=== PATIENT | female | born 1955 | race Caucasian/White ===

== ENCOUNTER 2017-07-07 15:59 | Inpatient (IN) | payer OTHER ==
[~2017-07-07] VITALS: Ht 162.6 cm; Wt 68.9 kg
[~2017-07-07 15:59] MED LIST: ASCO500 PO; Augmentin 875-1 EACH PO; CEPH500 PO; CHLO5; Enulose10 GM/15 M PO; FURO20 PO; FURO40 PO; HYDCHL25 PO; IBUP800 PO; K-Dur20 MEQ PO; LACT10SY PO; PANT40 PO; POTA8 PO; POTCHL10ER PO; SERT100 PO; SPIR50 PO; TRAM50 PO; VITAMIN D PO; WATER PILL; ZOLOFT; [UNRECOGNIZED DRUG - CODE] PO
[2017-07-07 16:26] LABS: BASOPHILS ABSOLUTE AUTO 0.02 K/mm3 (0.00-0.23); BASOPHILS PERCENT AUTO 0 % (0-2); EOSINOPHILS ABSOLUTE AUTO 0.18 K/mm3 (0.00-0.68); EOSINOPHILS PERCENT AUTO 2 % (0-6); Hematocrit 36.3 % (33.0-51.0); Hemoglobin 12.2 g/dL (11.5-16.0); IMMATURE GRAN ABSOLUTE AUTO 0.02 K/mm3 (0.00-0.10); IMMATURE GRAN PERCENT AUTO 0 % (0-1); LYMPHOCYTES ABSOLUTE AUTO 1.47 K/mm3 (0.84-5.20); LYMPHOCYTES PERCENT AUTO 20 % (21-46); MONOCYTES ABSOLUTE AUTO 0.49 K/mm3 (0.16-1.47); MONOCYTES PERCENT AUTO 7 % (4-13); Mean Corpuscular HGB 30.9 pg (26.0-34.0); Mean Corpuscular HGB Conc 33.6 g/dL (31.5-36.5); Mean Corpuscular Volume 92 fL (80-100); Mean Platelet Volume 9.8 fL (9.1-12.4); NEUTROPHILS ABSOLUTE AUTO 5.24 K/mm3 (1.96-9.15); NEUTROPHILS PERCENT AUTO 71 % (41-73); Platelet Count 237 K/mm3 (150-400); RDW Coefficient Variation 14.5 % (11.7-14.2); RDW Standard Deviation 48.8 fL (35.1-46.3); Red Blood Cell Count 3.95 M/mm3 (3.80-5.20); White Blood Cell Count 7.42 K/mm3 (4.00-11.30)
[2017-07-07 16:41] LABS: Alanine Aminotransfer (ALT/SGP 35 U/L (12-78); Albumin, Blood 2.3 g/dL (3.4-5.0); Albumin/Globulin Ratio 0.5 (0.8-1.8); Alk Phos 172 U/L (50-136); Anion Gap 8 mmol/L (6-16); Aspartate Aminotrans (AST/SGOT 51 U/L (12-37); Bilirubin, Total 1.5 mg/dL (0.1-1.0); Blood Urea Nitrogen 10 mg/dL (8-24); Bun/Creatinine Ratio 13.8 (12.0-20.0); CO2, Blood 25 mmol/L (21-32); Chloride, Blood 100 mmol/L (98-108); Creatinine, Blood 0.72 mg/dL (0.40-1.00); Globulin, Blood 4.5 g/dL (2.2-4.0); Glomerular Filtration Rate >60 (60-); Glucose, Blood 92 mg/dL (70-99); Potassium, Blood 4.1 mmol/L (3.5-5.5); Sodium, Blood 133 mmol/L (136-145); Total Protein, Blood 6.8 g/dL (6.4-8.2)
[2017-07-07 20:32] LABS: CHOL/HDL RATIO 5.2; Cholesterol 130 mg/dL (50-200); HDL Cholesterol 25 mg/dL (>39); LDL/HDL RATIO 3.6; Low Density Lipoprotein Chol 90 mg/dL (0-110); Triglycerides 77 mg/dL (30-160); Very Low Density Lipoprot Chol 15 mg/dL (6-32)
[2017-07-07] MEDS ORDERED: CHLO5 PO (21:22)
[2017-07-07] MEDS ORDERED: ACET325 PO (21:24)
[2017-07-07] MEDS ORDERED: MELA3 PO (21:26)
[2017-07-08 05:12] LABS: BASOPHILS ABSOLUTE AUTO 0.05 K/mm3 (0.00-0.23); BASOPHILS PERCENT AUTO 1 % (0-2); EOSINOPHILS PERCENT AUTO 3 % (0-6); Hematocrit 29.8 % (33.0-51.0); Hemoglobin 9.9 g/dL (11.5-16.0); IMMATURE GRAN ABSOLUTE AUTO 0.02 K/mm3 (0.00-0.10); IMMATURE GRAN PERCENT AUTO 0 % (0-1); LYMPHOCYTES ABSOLUTE AUTO 1.59 K/mm3 (0.84-5.20); LYMPHOCYTES PERCENT AUTO 26 % (21-46); MONOCYTES ABSOLUTE AUTO 0.78 K/mm3 (0.16-1.47); MONOCYTES PERCENT AUTO 13 % (4-13); Mean Corpuscular HGB 30.8 pg (26.0-34.0); Mean Corpuscular HGB Conc 33.2 g/dL (31.5-36.5); Mean Corpuscular Volume 93 fL (80-100); Mean Platelet Volume 9.9 fL (9.1-12.4); NEUTROPHILS ABSOLUTE AUTO 3.46 K/mm3 (1.96-9.15); NEUTROPHILS PERCENT AUTO 57 % (41-73); Platelet Count 191 K/mm3 (150-400); RDW Coefficient Variation 14.8 % (11.7-14.2); RDW Standard Deviation 50.1 fL (35.1-46.3); Red Blood Cell Count 3.21 M/mm3 (3.80-5.20)
[2017-07-08 05:53] LABS: Alanine Aminotransfer (ALT/SGP 26 U/L (12-78); Albumin, Blood 1.8 g/dL (3.4-5.0); Albumin/Globulin Ratio 0.5 (0.8-1.8); Alk Phos 124 U/L (50-136); Anion Gap 8 mmol/L (6-16); Aspartate Aminotrans (AST/SGOT 36 U/L (12-37); Bilirubin, Total 1.5 mg/dL (0.1-1.0); Blood Urea Nitrogen 9 mg/dL (8-24); Bun/Creatinine Ratio 13.5 (12.0-20.0); CO2, Blood 24 mmol/L (21-32); Chloride, Blood 103 mmol/L (98-108); Creatinine, Blood 0.67 mg/dL (0.40-1.00); Globulin, Blood 3.4 g/dL (2.2-4.0); Glomerular Filtration Rate >60 (60-); Glucose, Blood 78 mg/dL (70-99); Potassium, Blood 4.3 mmol/L (3.5-5.5); Sodium, Blood 135 mmol/L (136-145); Total Protein, Blood 5.2 g/dL (6.4-8.2)
[2017-07-08 05:54] LABS: Calcium, Blood 7.8 mg/dL (8.5-10.1)
--- NOTE | 2017-07-08 07:43 | NUR ---
07/07/17 0630 DENIED ANY PAIN THIS SHIFT. NPO AND ORAL CARE GIVEN WITH SWABS. WAS INCONTINENT OF URINE AND UNABLE TO GIVE A URINE SAMPLE YET. DAY SHIFT RN NOTIFIED. VITALS REMAIN STABLE. TURNED SIDE TO SIDE AND OFF REDDENED COCCYX.
--- NOTE | 2017-07-08 08:45 | NUR ---
pt laying in bed, daughter at bedside, she is a/ox3, a bit forgetful, pleasant and cooperative with care, daughter is caregiver, lungs are clear t/o, resp even and unlabored, no cough noted, hrr, no edema noted, ppp+1, cap refill <3sec, vs stable, afebrile, iv site to rac site is clear and patent, infusing ns at 75mls/hr, btx4, abd round distended, firm, has hernia and recent surgical site to abd, see chart, gets up to bsc to void with daughters assistance, skin has some scraps and pink coccyx, maew, general weakness, funmi. call light in reach, daughter expresses concerns about her not voiding since 5am, and no bm since friday, which she is suppose to have three bm's a day. will adress with
--- NOTE | 2017-07-08 10:56 | NUR ---
IV OCCLUDING FREQUENTLY. PLACED NEW 20G TO LEFT FA X1 ATTEMPT. GOOD BLOOD RETURN, FLUSHES WELL. REMOVED OLD IV TO LEFT AC INTACT. DR. MOORE IN TO SEE PT. WILL ALLOW SIPS OF CLEAR LIQUIDS AT THIS TIME. PT DENIES ANY PAIN, WANTS TO WAIT UNTIL AFTER LUNCH TO TAKE A SHOWER, DAUGHTER AT BEDSIDE VERY ATTENTIVE. CALL LIGHT IN REACH.
[2017-07-08 12:33] LABS: Source, Urine Clean Catch
[2017-07-08 12:52] LABS: Bilirubin, Urine Neg (Neg); Blood, Urine Neg (Neg); Glucose Qualitative, Urine Neg (Neg); Ketones, Urine Neg (Neg); Leukocyte Esterase, Urine Neg (Neg); Nitrite, Urine Neg (Neg); Protein, Urine Neg (Neg); Specific Gravity, Urine 1.015 (1.003-1.022); Urobilinogen, Urine 1+ (Normal)
[2017-07-08 12:58] LABS: Appearance, Urine Clear (Clear); Color, Urine Yellow (P-Yellow)
--- NOTE | 2017-07-08 15:08 | NUR ---
GOT PT UP TO SHOWER, LINEN CHANGE. ENCOURAGED HIM TO GET OOB AND SIT IN A CHAIR AND MOVE AROUND A BIT, AND SIT UP FOR HIS MEALS. HE IS AGREEABLE. NO COMPLAINTS OR NEEDS AT THIS TIME. CALL LIGHT IN REACH.
--- NOTE | 2017-07-08 15:08 | NUR ---
Met with Mariaelena and her daughter Raymond. They had questions re: what options are available to Mariaelena. Mariaelena has liver disease from ETOH use. Mariaelena is alert and oriented x2, but is forgetful at times. Raymond reports that she and her sister take care of their mother in Mariaelena's home in [place]. Discussed disease trajectory with current weekly paracentesis vs. hospice with possible pleurX drain placement. Discussed hospice philosophy and answered questions. Mariaelena stated that hospice sounded like something she would be interested in. She stated she wanted to talk with her family and discuss the options before making a decision. Gave them hospice pamphlet and information on pleurX drain. Showed them what a pleurX catheterlooks like and what the drainage collecting system looks like. Mariaelena's mother just recently after being on hospice services for 35 days. Emotional support given to Mariaelena and Raymond. PC to follow up to answer any other questions and assist Mariaelena and family as needed. Nursing updated on discussion with Mariaelena and Raymond this afternoon.
--- NOTE | 2017-07-08 15:11 | NUR ---
PALLATIVE CARE CAME BY TO SEE PT. GAVE HER SOME OPTIONS, WHEN OTHER DAUGHTER GETS HERE WILL MAKE SOME DECISIONS ABOUT HOSPICE. NO COMPLAINTS OR NEEDS AT THIS TIME. CALL LIGHT IN REACH.
--- NOTE | 2017-07-08 17:12 | NUR ---
INTRODUCED MYSELF TO PT AND ROSETTE, CORETTA. WE CONTINUED DISCUSSION OF PT'S CURRENT S/S, HEALTH CONCERNS AND WHAT WAS MOST IMPORTANT TO HER. WHEN ASKED IF IT WAS IMPORTANT TO HER TO KNOW WHAT THE MASS NOTED ON CT IS, SHE SAID "YES, I THINK I SHOULD KNOW WHAT IT IS." BHAVIN PARTICIPATED IN THE CONVERSATION TO SOME EXTENT BUT DEFERED MUCH OF IT TO HER ROSETTE. THEY BOTH INDICATE THAT THEIR PRIMARY GOAL AT THIS POINT IS TO BE COMFORTABLE AND TO HAVE A BETTER QUALITY OF LIFE THAN SHE HAS EXPERIENCED IN RECENT MONTHS. THE MOST IMMEDIATE SYMPTOM CONCERN FOR BOTH IS CONSTIPATION AND LACK OF BM SINCE FRIDAY AM. THEY FOLLOW A VERY STRICT AND AGRESSIVE BOWEL PROGRAM AT HOME BECAUSE THEIR PROVIDERS HAVE STRESSED THE NEED FOR BOWEL MOVEMENTS EVERY DAY BECAUSE OF HER HERNIAS AND OTHER ABD. ISSUES. RN CAME IN TO ADMINISTER A DOSE OF LACTULOSE DURING MY VISIT. THIS WILL BE REPEATED IN 2 HOURS. PT DENIES FISH, THROAT PAIN, BODILY PAIN, ANXIETY OR NAUSEA. UMBILICAL HERNIA NOTED AND SWELLING OF ABDOMEN AROUND HERNIA CONTINUES TO PROGRESS. PT NORMALLY GETS ABD. TAP WEEKLY FOR ASCITES. SHE VERBALIZES FATIGUE WITH ALL THAT IS REQUIRED TO KEEP HER COMFORTABLE, MULTIPLE MEDICAL APPOINTMENTS, ER OR HOSPITAL VISITS AND POOR SYMPTOM CONTROL FOR NAUSEA AND PAIN OFTEN AT HOME. CG FATIGUE ALSO NOTED. I PRAISED FAMILY FOR THEIR ATTENTIVE CARE AND SACRIFICE TO MEET PATIENTS COMPLEX NEEDS. PLAN: FOLLOW UP TOMORROW WITH PT/FAMILY, AND STATION MECHANIC HELPER. PT & FAMILY WORKING ON DECISION RE: HOSPICE BUT ALSO AWAITING FURTHER DIAGNOSTIC INFO. TO HELP WITH THAT.
--- NOTE | 2017-07-08 18:24 | NUR ---
daughter went home to rest for a while, pt is doing ok. gave her the 1800 dose of lactulose. assisted her with taking it. she states she would like some larisa mist to sip on, this was brought to her. no further changes or needs at this time. another daughter was in room asking about plan for going home. answered questions. she states they are leaning toward hospice. no further changes this shift. call light in reach.
[2017-07-09 05:10] LABS: BASOPHILS ABSOLUTE AUTO 0.04 K/mm3 (0.00-0.23); BASOPHILS PERCENT AUTO 1 % (0-2); EOSINOPHILS ABSOLUTE AUTO 0.18 K/mm3 (0.00-0.68); EOSINOPHILS PERCENT AUTO 4 % (0-6); Hematocrit 32.2 % (33.0-51.0); Hemoglobin 10.6 g/dL (11.5-16.0); IMMATURE GRAN ABSOLUTE AUTO 0.03 K/mm3 (0.00-0.10); IMMATURE GRAN PERCENT AUTO 1 % (0-1); LYMPHOCYTES ABSOLUTE AUTO 1.27 K/mm3 (0.84-5.20); LYMPHOCYTES PERCENT AUTO 25 % (21-46); MONOCYTES PERCENT AUTO 14 % (4-13); Mean Corpuscular HGB 30.6 pg (26.0-34.0); Mean Corpuscular HGB Conc 32.9 g/dL (31.5-36.5); Mean Corpuscular Volume 93 fL (80-100); Mean Platelet Volume 9.5 fL (9.1-12.4); NEUTROPHILS ABSOLUTE AUTO 2.97 K/mm3 (1.96-9.15); NEUTROPHILS PERCENT AUTO 57 % (41-73); Platelet Count 184 K/mm3 (150-400); RDW Coefficient Variation 14.8 % (11.7-14.2); RDW Standard Deviation 50.2 fL (35.1-46.3); Red Blood Cell Count 3.46 M/mm3 (3.80-5.20)
[2017-07-09 05:40] LABS: Alanine Aminotransfer (ALT/SGP 26 U/L (12-78); Albumin, Blood 1.9 g/dL (3.4-5.0); Albumin/Globulin Ratio 0.5 (0.8-1.8); Alk Phos 123 U/L (50-136); Anion Gap 7 mmol/L (6-16); Aspartate Aminotrans (AST/SGOT 41 U/L (12-37); Bilirubin, Total 1.8 mg/dL (0.1-1.0); Blood Urea Nitrogen 7 mg/dL (8-24); Bun/Creatinine Ratio 10.5 (12.0-20.0); CO2, Blood 23 mmol/L (21-32); Calcium, Blood 7.9 mg/dL (8.5-10.1); Chloride, Blood 105 mmol/L (98-108); Creatinine, Blood 0.67 mg/dL (0.40-1.00); Globulin, Blood 3.6 g/dL (2.2-4.0); Glomerular Filtration Rate >60 (60-); Glucose, Blood 92 mg/dL (70-99); Potassium, Blood 3.9 mmol/L (3.5-5.5); Sodium, Blood 135 mmol/L (136-145); Total Protein, Blood 5.5 g/dL (6.4-8.2)
--- NOTE | 2017-07-09 05:50 | NUR ---
PT REMAINS SOMEWHAT CONFUSED AND DISORIENTED REQUIRING REDIRECTION AND CUEING. MUCH EMOTIONAL SUPPORT AND REASSURANCE PROVIDED TO THIS PT.
--- NOTE | 2017-07-09 14:55 | NUR ---
Provided calm presence and theraputic listening to Mariaelena's dtr [place]. 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 It seems Kenya has been the one to provide hands-on end-of-life care to several family memebers. She has also had her own cancer landaverde several years ago. Mariaelena appears very frail and admits to being tired. She is worried about being a burden on her daughters and states she understands she is nearing end-of-life. Provided spirtitual direction, affirmation of strength and devotion, and prayer for guidence. I will remain available.
--- NOTE | 2017-07-09 19:05 | NUR ---
PT. LYING QUIETLY CONSUMED FULL LIQUID DINNER AND TOLERATED WELL. FAMILY WITH PT. MOST OF THE DAY, DR. GOSS UNABLE TO PLACE PLEUREX TODAY THERE WASN'T ENOUGH FLUID IN ABDOMEN WILL DO AN OUTPT. PROBABLE DISCHARE HOME ON HH/HOSPICE/COMFORT CARE TOMORROW. PT. CODE STATUS IS NOW DNR.
[2017-07-10 05:08] LABS: BASOPHILS ABSOLUTE AUTO 0.04 K/mm3 (0.00-0.23); BASOPHILS PERCENT AUTO 1 % (0-2); EOSINOPHILS ABSOLUTE AUTO 0.19 K/mm3 (0.00-0.68); EOSINOPHILS PERCENT AUTO 4 % (0-6); Hematocrit 29.3 % (33.0-51.0); Hemoglobin 9.7 g/dL (11.5-16.0); IMMATURE GRAN ABSOLUTE AUTO 0.02 K/mm3 (0.00-0.10); IMMATURE GRAN PERCENT AUTO 0 % (0-1); LYMPHOCYTES ABSOLUTE AUTO 1.62 K/mm3 (0.84-5.20); LYMPHOCYTES PERCENT AUTO 30 % (21-46); MONOCYTES ABSOLUTE AUTO 0.71 K/mm3 (0.16-1.47); MONOCYTES PERCENT AUTO 13 % (4-13); Mean Corpuscular HGB 30.6 pg (26.0-34.0); Mean Corpuscular HGB Conc 33.1 g/dL (31.5-36.5); Mean Corpuscular Volume 92 fL (80-100); Mean Platelet Volume 9.9 fL (9.1-12.4); NEUTROPHILS ABSOLUTE AUTO 2.83 K/mm3 (1.96-9.15); NEUTROPHILS PERCENT AUTO 52 % (41-73); Platelet Count 191 K/mm3 (150-400); RDW Coefficient Variation 14.7 % (11.7-14.2); RDW Standard Deviation 50.1 fL (35.1-46.3); Red Blood Cell Count 3.17 M/mm3 (3.80-5.20); White Blood Cell Count 5.41 K/mm3 (4.00-11.30)
[2017-07-10 05:30] LABS: Alanine Aminotransfer (ALT/SGP 25 U/L (12-78); Albumin, Blood 2.1 g/dL (3.4-5.0); Albumin/Globulin Ratio 0.7 (0.8-1.8); Alk Phos 107 U/L (50-136); Anion Gap 9 mmol/L (6-16); Aspartate Aminotrans (AST/SGOT 38 U/L (12-37); Bilirubin, Total 1.4 mg/dL (0.1-1.0); Blood Urea Nitrogen 8 mg/dL (8-24); Bun/Creatinine Ratio 14.1 (12.0-20.0); CO2, Blood 22 mmol/L (21-32); Calcium, Blood 7.9 mg/dL (8.5-10.1); Chloride, Blood 106 mmol/L (98-108); Creatinine, Blood 0.57 mg/dL (0.40-1.00); Globulin, Blood 3.2 g/dL (2.2-4.0); Glomerular Filtration Rate >60 (60-); Glucose, Blood 104 mg/dL (70-99); Potassium, Blood 3.8 mmol/L (3.5-5.5); Sodium, Blood 137 mmol/L (136-145); Total Protein, Blood 5.3 g/dL (6.4-8.2)
--- NOTE | 2017-07-10 16:00 | NUR ---
PT. DISCHARGED HOME ON HOME HEALTH WITH DAUGHTER. LATER TO TRANSITION TO HOSPICE AFTER PLEUREX PLACED. HOME BY PRIVATE CAR.
[2017-07-18] MEDS ORDERED: MAGOXI400 PO (11:53)
[2017-07-18] MEDS ORDERED: ONDA4ODT (11:53)
[2017-07-18] MEDS ORDERED: Cranberry400 MG PO (11:54)
[2017-07-18] MEDS ORDERED: MILK THISTLE1 GM PO (11:54)
== END 2017-07-10 15:53 | disposition hospice, home (50) | DRG 440 ==
LOC: ER 15:59 → MEDS 20:05 → ENPENDDIS 07-10 09:00 → MEDS 07-10 15:53
PROVIDERS: Internal Medicine; Physician Assistant Medical; ADMIT Internal Medicine
DX: K85.90 Acute pancreatitis without necrosis or infection, unspecified (principal); K70.31 Alcoholic cirrhosis of liver with ascites; B18.2 Chronic viral hepatitis C; E86.0 Dehydration; F10.21 Alcohol dependence, in remission; Z66 Do not resuscitate; Z88.8 Allergy status to other drugs, medicaments and biological substances; Z79.899 Other long term (current) drug therapy; Z87.891 Personal history of nicotine dependence
CPT/HCPCS: 36415; 74177; 80053; 80061; 81003; 83690; 85025; 96374; 99285; J1650; J2270; J7030; P9041; Q9967

== ENCOUNTER 2017-08-19 00:47 | Day surgery (SDC) | payer OTHER ==
[~2017-08-19 00:47] MED LIST changes: +ACET325 PO; +CHLO5 PO; +Cranberry400 MG PO; +MAGOXI400 PO; +MELA3 PO; +MILK THISTLE1 GM PO; +ONDA4ODT
== END 2017-08-19 17:20 | disposition home or self-care (01) ==
LOC: ATC 00:47 → US 00:47 → ATC 17:20
PROC: 0W9G3ZZ Drainage of Peritoneal Cavity, Percutaneous Approach (ICD-10-PCS; principal; 2017-08-19)
DX: K70.31 Alcoholic cirrhosis of liver with ascites (principal); Z86.19 Personal history of other infectious and parasitic diseases
CPT/HCPCS: 49083; 96365; P9041